=== PATIENT | female | born 2000 | race Two or more races ===

== ENCOUNTER 2024-08-16 09:08 | Emergency (ER) | payer SELFPAY ==
[~2024-08-16] VITALS: Ht 175.3 cm; Wt 90.9 kg
[2024-08-16 09:15] VITALS: BP 126/74; PULSE 82; RESP 15; TEMP 98.6; O2SAT 100
[2024-08-16] MEDS: PERTUSS(ACELL),DIPH,TET/PF 0.5 ML SYRINGE [ADULT] IM. ONE (09:42)
[2024-08-16] MEDS: CEPHALEXIN MONOHYDRATE 500 MG CAPSULE PO ONE (09:43)
[2024-08-16] MEDS: SULFAMETHOX/TRIMETH DS 800-160 MG/TABLET PO ONE (09:45)
[2024-08-16] MEDS ORDERED: CEPH-558 PO (09:54)
[2024-08-16] MEDS ORDERED: SULF-261 PO (09:54)
== END 2024-08-16 10:05 | disposition home or self-care (01) ==
LOC: EMS 09:08
DX: L08.9 Local infection of the skin and subcutaneous tissue, unspecified (principal)
CPT/HCPCS: 90471; 90715; 99283